=== PATIENT | female | born 1965 | race Two or more races ===

== ENCOUNTER → 2017-02-07 | Outpatient (CLI) | payer OTHER ==
[~2017-02-07] MED LIST: ACTOS PO; ACTOS30 MG PO; AMBIEN PO; ASPIRIN PO; HUMALOG MIX 75/10 ML SUBQ; HUMALOG100 U/ML SUBQ; HYDROCODON-ACE1 EAC4 PO; LIPITOR PO; LORTAB 10/500 T1 TAB PO; OMEPRAZOLE40 MG PO; PRILOSEC PO; VYTORIN 10/40 M1 TAB PO; [UNRECOGNIZED DRUG - REMARK]
--- NOTE | ~2017-02-07 | US128 ---
[id number] [facility]. [facility] [address] [place], [place] [address] [id number] O MR#: [id number] Acc #: [id number] NAME: JANICE SLATER : 1965 SEX: F STUDY DATE/TIME: 02/07/2017 9:13 UNIT: [facility] ROOM: STUDY DESCRIPTION: Thyroid Attending Physician: Uziel Sanchez M.D. Referring Physician: Uziel Sanchez M.D. Ordering Physician: Uziel Sanchez M.D. Primary Care Physician: zUiel Sanchez M.D. MEDICAL IMAGING REPORT This report is preliminary unless electronic signature is present EXAM Thyroid ultrasound, date of study 02/07/2017 CLINICAL HISTORY Routine followup for multinodular goiter. FINDINGS There is a solid nodule at the junction of the right lobe and isthmus measuring 1.5 x 1.9 x 0.9 cm. It was measured at 1.7 x 0.7 x 1.4 cm previously and is likely not significantly changed. No additional right lobe nodules are seen. There is a mixed echogenic density nodule the left mid to lower pole measuring 1.5 x 1.6 x 1.2 cm. It was measured at 1.6 x 1.3 x 1.2 cm previously. IMPRESSION Stable bilateral thyroid nodules. No interval change since 08/16/2013. Dictated by... Rayshawn Moreno M.D. THIS IS AN ELECTRONICALLY VERIFIED REPORT Rayshawn Moreno M.D. at 02/08/2017 5:05 PM DARLENE/liset TD: 02/07/2017 13:22 JOB #: [id number] MEDICAL IMAGING REPORT Page 1 of 1 COPY
== END | disposition home or self-care (01) ==
LOC: CWCC 08:28
DX: E04.2 Nontoxic multinodular goiter (principal)
CPT/HCPCS: 76536